=== PATIENT | female | born 1965 | race Caucasian/White ===

== ENCOUNTER 2025-02-17 10:10 | Emergency (ER) | payer BC ==
[2025-02-17] MEDS: Heparin Sodium 5,000 Units/ML Vial IVPUSH ONE (10:33)
[2025-02-17] MEDS: fentaNYL 50 MCG/ML SDV IVPUSH ONE (10:39)
[2025-02-17 10:41] LABS: BASOPHILS ABSOLUTE AUTO 0.07 K/uL (0.00-0.10); BASOPHILS PERCENT AUTO 0.7 % (0.1-1.3); EOSINOPHILS ABSOLUTE AUTO 0.16 K/uL (0.00-0.40); EOSINOPHILS PERCENT AUTO 1.5 % (0.0-5.4); IMMATURE GRAN ABSOLUTE AUTO 0.04 K/uL (0.00-0.23); IMMATURE GRAN PERCENT AUTO 0.4 % (0.0-0.7); LYMPHOCYTES ABSOLUTE AUTO 3.17 K/uL (0.8-3.3); LYMPHOCYTES PERCENT AUTO 30.1 % (11.4-47.7); MONOCYTES ABSOLUTE AUTO 0.66 K/uL (0.20-0.90); MONOCYTES PERCENT AUTO 6.3 % (3.3-12.6); NEUTROPHILS ABSOLUTE AUTO 6.42 K/uL (1.0-7.6); NEUTROPHILS PERCENT AUTO 61.0 % (40.0-78.1); PLATELET COUNT,PLT 326 K/uL (130-375); RED BLOOD CELL COUNT 4.66 M/uL (3.77-5.24); WHITE BLOOD CELL COUNT,WBC 10.5 K/uL (3.2-11.0)
[2025-02-17] MEDS ORDERED: Metoprolol Tartrate 5 MG/5 ML SDV IV ONE (10:45)
[2025-02-17] MEDS: fentaNYL 50 MCG/ML SDV ONE (10:49)
[2025-02-17 11:01] LABS: A/G RATIO 1.0 (1.2-2.2); ALANINE AMINOTRANSFERASE,ALT 32 U/L (12-78); ASPARTATE AMNIOTRANSFERASE,AST 19 U/L (15-37); BILIRUBIN TOTAL 0.6 mg/dL (0.2-1.0); BLOOD UREA NITROGEN,BUN 13 mg/dL (7-18); CARBON DIOXIDE,CO2 24 mmol/L (21-32); CHLORIDE,CL 106 mmol/L (100-108); CREATININE 0.9 mg/dL (0.6-1.0); EST CRCL DRUG DOSING (CG) 66.08 mL/min; ESTIMATED GFR 74 mL/min (>60); GLUCOSE RANDOM 155 mg/dL (74-106); POTASSIUM,K 3.6 mmol/L (3.6-5.2); PROTEIN TOTAL,TP 7.6 g/dL (6.4-8.2); SODIUM,NA 141 mmol/L (140-148); TROPONIN I HIGH SENSITIVITY 7.8 pg/mL (<=60.3)
== END 2025-02-17 10:47 ==
LOC: JP.ED 10:10
DX: I21.19 ST elevation (STEMI) myocardial infarction involving other coronary artery of inferior wall (principal); K21.9 Gastro-esophageal reflux disease without esophagitis; F17.200 Nicotine dependence, unspecified, uncomplicated; Z79.899 Other long term (current) drug therapy
CPT/HCPCS: 36415; 80053; 84484; 85025; 93005; 96374; 96375; 99285; J1644; J3010